=== PATIENT | male | born 1940 | race Caucasian/White ===

== ENCOUNTER 2022-07-05 06:15 | Day surgery (SDC) | payer MEDICARE, OTHER ==
[~2022-07-05] VITALS: Ht 170.2 cm; Wt 82.7 kg
[2022-07-05] MEDS ORDERED: ALBUTEROL SULFATE 2.5 MG/0.5 ML NEB SOLUTION NEB ONE (06:16)
[2022-07-05] MEDS ORDERED: LIDOCAINE 2% 11 ML JELLY TP ONE (06:16)
[2022-07-05] MEDS ORDERED: BENZOCAINE 20% 50 MCG/SPRAY 57 GM TP ONE (06:16)
[2022-07-05] MEDS ORDERED: LIDOCAINE 4% 50 ML SOLUTION TP ONE (06:16)
[2022-07-05 06:39] LABS: COVID AG,FIA SOURCE NASAL SWAB
[2022-07-05] MEDS ORDERED: TAMS-13 PO (06:59)
[2022-07-05] MEDS ORDERED: CYAN500T56 PO (06:59)
[2022-07-05] MEDS ORDERED: CLOP75TA60 PO (06:59)
[2022-07-05] MEDS ORDERED: AMLO-257 PO (06:59)
[2022-07-05] MEDS ORDERED: FINA-27 PO (06:59)
[2022-07-05] MEDS ORDERED: BENA20TA83 PO (06:59)
[2022-07-05] MEDS ORDERED: SIMV-260 PO (06:59)
[2022-07-05] MEDS ORDERED: HYDR25TA84 PO (06:59)
[2022-07-05] MEDS ORDERED: DONE-52 PO (06:59)
[2022-07-05] MEDS ORDERED: SODIUM CHLORIDE 0.9% 1,000 ML IV ONE (07:00)
[2022-07-05] MEDS ORDERED: SODIUM CHLORIDE 0.9% 1,000 ML ONE (07:20)
[2022-07-05] MEDS ORDERED: FentaNYL CITRATE PF 100 MCG/2 ML VIAL ONE (08:17)
[2022-07-05] MEDS ORDERED: MIDAZOLAM HCL 5 MG/ML VIAL ONE (08:17)
[2022-07-05] MEDS ORDERED: SODIUM CHLORIDE 0.9% 10 ML ONE (08:23)
[2022-07-05] MEDS ORDERED: MethylPREDNISolone SOD SUCC 125 MG/2 ML VIAL ONE (09:23)
[2022-07-05] MEDS ORDERED: MethylPREDNISolone SOD SUCC 125 MG/2 ML VIAL IVP ONE (09:45)
[2022-07-05] MEDS ORDERED: OXYGEN THERAPY IH SCH (20:00)
== END 2022-07-05 11:55 | disposition home or self-care (01) ==
LOC: SURGERY 06:15
PROVIDERS: ATTEND Internal Medicine Critical Care Medicine
DX: J38.4 Edema of larynx (principal); B37.0 Candidal stomatitis; I10 Essential (primary) hypertension; Z98.890 Other specified postprocedural states; Z98.41 Cataract extraction status, right eye; Z98.42 Cataract extraction status, left eye; Z87.01 Personal history of pneumonia (recurrent); Z79.899 Other long term (current) drug therapy; I69.354 Hemiplegia and hemiparesis following cerebral infarction affecting left non-dominant side
CPT/HCPCS: 31623; 87206; 87101; 87220; 87070; 87015; 31624; 71045; 87426; J3010; J2930; J2250; Q9967; J7030; C9803; 88112; 88305; 88312; J7613; Z7610